=== PATIENT | male | born 1935 | race Caucasian/White ===

== ENCOUNTER 2016-07-14 07:20 | Emergency (ER) | payer MEDICARE ==
[~2016-07-14] VITALS: Ht 172.7 cm; Wt 80.0 kg
[~2016-07-14 07:20] MED LIST: ASPI81CH CHEW; FERR325T PO; GABA300C5 PO; VENTAER INH; parkinson med PO
[2016-07-14] MEDS ORDERED: CARB1CAP PO (07:37)
[2016-07-14] MEDS ORDERED: ANTICRE6 (07:39)
[2016-07-14 07:44] VITALS: RESP 16; O2SAT 95
[2016-07-14] MEDS ORDERED: RESP: ALBUTEROL 2.5 MG/IPRATROPIUM 0.5 MG NEB (SCH) NEB ONE (07:45)
--- NOTE | 2016-07-14 07:49 | PD ---
HPI Chief Complaint: Respiratory Symptoms Time Seen by Provider: 07:27 Travel History International Travel<30 days: No Contact w/Intl Traveler<30days: No Traveled to known affect area: No History of Present Illness HPI 81-year-old male presents with shortness of breath over the past couple of days. He states he went to an urgent care when he could not get in with his primary care physician for left elbow pain. There they placed him on antibiotic that he thinks is Bactrim and told him to use warm compresses and to come back in 2 days to be rechecked. Last night when he was rechecked and told he had shortness of breath they advised him to come to the emergency room. He states he had stuffy had to do so he elected to come in this morning. He states that he is not having specific other concurrent complaints but is an overall poor historian. His helps supplement history. PFSH Past Medical History Hx Anticoagulant Therapy: Yes (BABY ASA DAILY) Arthritis: Yes (pseudogout) Atrial Fibrillation: Yes Autoimmune Disease: No Blood Disorders: No Heart Rhythm Problems: Yes (A. FIB) Cancer: Yes (prostate) Cardiovascular Problems: Yes (atrial fibrillation) Chemotherapy: No Diminished Hearing: No Endocrine: No Gastrointestinal Disorders: No Genitourinary: Yes Immune Disorder: No Kidney Stones: Yes Musculoskeletal: No Neurologic: Yes (RIGHT FACIAL NUMBNESS, SINCE RESOLVED) Psychiatric: No Respiratory: No Immunizations Current: Yes Radiation Therapy: No Past Surgical History Abdominal Surgery: Yes (HERNIA REPAIR) Appendectomy: Yes Body Medical Devices: KIDNEY STENTS Eye Surgery: Yes (BILATERAL CATARACTS WITH IMPLANTS) Genitourinary Surgery: Yes (PROSTATECTOMY, STENTS FOR KIDNEY STONES, LITHOTRIPSY) Tonsillectomy: Yes Other Surgery: Yes Social History Alcohol Use: No Tobacco Use: No Substance Use: No Allergies-Medications (Allergen,Severity, Reaction): Coded Allergies: Codeine (Verified Allergy, Intermediate, Nausea/Vomiting, 07/14/16) Reported Meds & Prescriptions Reported Meds & Active Scripts Active Reported [Antibiotic] Rytary ER 8 HR (Carbidopa-Levodopa ER 8 HR) 36.25-145 Mg Cap 1 Cap PO BID Aspirin 81 Mg Chew 81 Mg CHEW ONCE Gabapentin 300 Mg Cap 300 Mg PO QID PRN Ferrous Sulfate 325 Mg Tab 325 Mg PO DAILY Review of Systems Except as stated in HPI: all other systems reviewed are Neg Physical Exam Narrative GENERAL: Well-nourished, well-developed patient. SKIN: Warm and dry. HEAD: Normocephalic and atraumatic. EYES: No injection or drainage. ENT: No nasal drainage noted. NECK: Supple, trachea midline. CARDIOVASCULAR: Regular rate and rhythm RESPIRATORY: clear bilaterally. No accessory muscle use. GASTROINTESTINAL: Abdomen soft, non-tender, nondistended. EXTREMITIES: 1+ pitting bilateral lower extremity edema. Tenderness over left elbow just above joint where there is a small amount of erythema noted without underlying induration or crepitus or joint pain NEUROLOGICAL: Awake. Moves extremities. Normal speech. Data Data Last Documented VS Vital Signs Date Time Temp Pulse Resp B/P Pulse Ox O2 Delivery O2 Flow Rate FiO2 07/14/16 12:13 62 16 124/61 96 07/14/16 09:41 Room Air Orders Electrocardiogram (07/14/16 07:41) Complete Blood Count With Diff (07/14/16 07:41) Comprehensive Metabolic Panel (07/14/16 07:41) Prothrombin Time / Inr (Pt) (07/14/16 07:41) Act Partial Throm Time (Ptt) (07/14/16 07:41) Magnesium (Mg) (07/14/16 07:41) Phosphorus (Po4) (07/14/16 07:41) Ckmb (Isoenzyme) Profile (07/14/16 07:41) Troponin I (07/14/16 07:41) Urinalysis - C+S If Indicated (07/14/16 07:41) Chest, Single Ap (07/14/16 07:41) Ecg Monitoring (07/14/16 07:41) Iv Access Insert/Monitor (07/14/16 07:41) Oximetry (07/14/16 07:41) Elbow, Complete (4 Vws) (07/14/16 ) B-Type Natriuretic Peptide (07/14/16 07:41) Albuterol-Ipratropium Neb (Duoneb Neb) (07/14/16 07:45) Blood Culture (07/14/16 07:43) Us Arm Venous Doppler (07/14/16 ) CKMB (07/14/16 07:40) CKMB% (07/14/16 07:40) Ct Pulmonary Angiogram (07/14/16 ) Iohexol 350 Inj (Omnipaque 350 Inj) (07/14/16 10:41) Ckmb (Isoenzyme) Profile (07/14/16 11:14) Troponin I (07/14/16 11:14) Electrocardiogram (07/14/16 ) Labs Laboratory Tests Test 07/14/16 07/14/16 07/14/16 07:40 11:00 11:18 White Blood Count 9.8 TH/MM3 Red Blood Count 4.17 MIL/MM3 Hemoglobin 12.5 GM/DL Hematocrit 37.2 % Mean Corpuscular Volume 89.2 FL Mean Corpuscular Hemoglobin 29.9 PG Mean Corpuscular Hemoglobin 33.5 % Concent Red Cell Distribution Width 14.8 % Platelet Count 254 TH/MM3 Mean Platelet Volume 7.1 FL Neutrophils (%) (Auto) 68.8 % Lymphocytes (%) (Auto) 13.0 % Monocytes (%) (Auto) 11.0 % Eosinophils (%) (Auto) 6.4 % Basophils (%) (Auto) 0.8 % Neutrophils # (Auto) 6.7 TH/MM3 Lymphocytes # (Auto) 1.3 TH/MM3 Monocytes # (Auto) 1.1 TH/MM3 Eosinophils # (Auto) 0.6 TH/MM3 Basophils # (Auto) 0.1 TH/MM3 CBC Comment DIFF FINAL Differential Comment Prothrombin Time 10.6 SEC Prothromb Time International 1.0 RATIO Ratio Activated Partial 25.6 SEC Thromboplast Time Sodium Level 144 MEQ/L Potassium Level 4.4 MEQ/L Chloride Level 111 MEQ/L Carbon Dioxide Level 23.7 MEQ/L Anion Gap 9 MEQ/L Blood Urea Nitrogen 19 MG/DL Creatinine 1.30 MG/DL Estimat Glomerular Filtration 53 ML/MIN Rate Random Glucose 94 MG/DL Calcium Level 9.2 MG/DL Phosphorus Level 2.8 MG/DL Magnesium Level 2.0 MG/DL Total Bilirubin 0.2 MG/DL Aspartate Amino Transf 12 U/L (AST/SGOT) Alanine Aminotransferase 10 U/L (ALT/SGPT) Alkaline Phosphatase 47 U/L Total Creatine Kinase 115 U/L 99 U/L Creatine Kinase MB 1.9 NG/ML Troponin I LESS THAN 0.02 LESS THAN 0.02 NG/ML NG/ML B-Type Natriuretic Peptide 58 PG/ML Total Protein 6.9 GM/DL Albumin 3.6 GM/DL Urine Collection Type CLEAN CATCH Urine Color YELLOW Urine Turbidity CLEAR Urine pH 6.5 Urine Specific [place] 1.021 Urine Protein NEG mg/dL Urine Glucose (UA) NEG mg/dL Urine Ketones NEG mg/dL Urine Occult Blood NEG Urine Nitrite NEG Urine Bilirubin NEG Urine Leukocyte Esterase NEG Urine RBC 0-3 /hpf Urine WBC 0-2 /hpf Urine Squamous Epithelial 0-5 /hpf Cells Urine Hyaline Casts 0-2 /lpf Microscopic Urinalysis Comment CULT NOT INDICATED Urine Collection Time 11:00 [facility] Medical Decision Making Medical Screen Exam Complete: Yes Emergency Medical Condition: Yes Medical Record Reviewed: Yes (past history confirmed) Interpretation(s) EKG is sinus rhythm without STEMI criteria CBC & BMP Diagram 07/14/16 07:40 Last 24 hours Impressions Chest X-Ray 07/14/16 0741 Signed Impressions: Service Date/Time: Thursday, July 14, 2016 08:12 - CONCLUSION: No acute disease. No significant change has occurred. Stephon Soto MD Elbow X-Ray 07/14/16 0000 Signed Impressions: Service Date/Time: Thursday, July 14, 2016 08:14 - CONCLUSION: Primary degenerative changes at the elbow joint. Stephon Soto MD Differential Diagnosis Gout, pseudogout, DVT, pneumonia, URI, bronchitis, anemia, renal failure Narrative Course Will check blood work, chest x-ray, Doppler ultrasound and reevaluate ed workup no acute, will add on ct to rule out pe ER workup no acute. We'll discuss with primary care physician Will add on delta troponin and if this is negative patient agrees to discharge. Patient has no chest pain and denies shortness of breath currently. troponin is negative, Patient denies any new complaints, all questions answered. Patient knows that follow up is incumbent on them and to return to the emergency room immediately if new or worsening symptoms develop. Patient given strict return precautions, vitals reviewed and are normal, agrees to further workup as an outpatient. Physician Communication Physician Communication dr galindo states to have patient follow in office on sunday Diagnosis Primary Impression: Shortness of breath Additional Impression: Cellulitis of left elbow Referrals: Frederic Galindo Jr., MD call for appointment sunday Patient Instructions: General Instructions Additional Instructions: continue antibiotic, return as needed, tylenol as needed Med/Other Pt SpecificInfo: No Change to Meds Disposition: 01 DISCHARGE HOME Condition: Stable Caridad Royal MD Jul 14, 2016 07:49
[2016-07-14 07:53] LABS: AUTOMATED NEUTROPHIL # 6.7 TH/MM3 (1.8-7.7); BASOPHIL # 0.1 TH/MM3 (0-0.2); BASOPHIL % 0.8 % (0.0-2.0); EOSINOPHIL # 0.6 TH/MM3 (0-0.4); EOSINOPHIL % 6.4 % (0.0-4.0); HEMATOCRIT 37.2 % (39.0-51.0); HEMO FLAGS DIFF FINAL; LYMPHOCYTE # 1.3 TH/MM3 (1.0-4.8); MEAN CELL VOLUME 89.2 FL (80.0-100.0); MEAN CORPUSCULAR HEMOGLOBIN 29.9 PG (27.0-34.0); MEAN CORPUSCULAR HGB CONC 33.5 % (32.0-36.0); NEUT % 68.8 % (16.0-70.0); PLATELET COUNT 254 TH/MM3 (150-450); RED BLOOD COUNT 4.17 MIL/MM3 (4.50-5.90); RED CELL DISTRIBUTION WIDTH 14.8 % (11.6-17.2); WHITE BLOOD COUNT 9.8 TH/MM3 (4.0-11.0)
[2016-07-14 08:03] LABS: CHLORIDE 111 MEQ/L (98-107); POTASSIUM 4.4 MEQ/L (3.5-5.1); SODIUM (NA) 144 MEQ/L (136-145)
[2016-07-14 08:06] LABS: APTT (PATIENT) 25.6 SEC (24.3-30.1); PROTHROMBIN TIME - PATIENT 10.6 SEC (9.8-11.6)
[2016-07-14 08:07] LABS: ANION GAP 9 MEQ/L (5-15); BICARBONATE 23.7 MEQ/L (21.0-32.0); BLOOD UREA NITROGEN 19 MG/DL (7-18)
[2016-07-14 08:09] LABS: ALT (GPT) 10 U/L (12-78)
[2016-07-14 08:10] LABS: AST (GOT) 12 U/L (15-37); GLOMERULAR FILTRATION RATE 53 ML/MIN (>89)
[2016-07-14 08:11] LABS: TOTAL BILIRUBIN ADULT 0.2 MG/DL (0.2-1.0)
[2016-07-14 08:12] LABS: ALKALINE PHOSPHATASE 47 U/L (45-117); CREATINE KINASE 115 U/L (39-308)
[2016-07-14 08:25] LABS: CKMB 1.9 NG/ML (0.5-3.6)
--- NOTE | 2016-07-14 08:58 | RADHPO ---
EXAM DATE/TIME: 07/14/2016 08:14 [facility] COMPARISON: No previous studies available for comparison. INDICATIONS : Left posterior elbow pain, swelling with no known injury. MEDICAL HISTORY : Arthritis. Renal calculi. Carcinoma, prostatic. A-fib. SURGICAL HISTORY : Tonsillectomy. Prostatectomy. Abdominal aortic aneurysm repair. Cataract. Hernia repair. Renal stents . Lithotripsy. Back surgery. ENCOUNTER: Initial ACUITY: 4 - 6 days PAIN SCORE: 8/10 LOCATION: Left posterior elbow FINDINGS: Multiple view examination of the left elbow demonstrates no soft tissue swelling, joint effusion, or fracture. The osseous structures are in normal alignment. There is no joint effusion. There are mild to moderate primary degenerative changes at the elbow joint. Bony mineralization is normal. There ar e vascular calcifications characteristic of PVD. 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 Stephon Soto MD on July 14, 2016 at 8:56 Board Certified Radiologist. This report was verified electronically.
--- NOTE | 2016-07-14 09:05 | RADHPO ---
EXAM DATE/TIME: 07/14/2016 08:12 [facility] COMPARISON: CHEST SINGLE AP, February 17, 2009, 17:03. INDICATIONS : Short of breath. Wheezing. MEDICAL HISTORY : Arthritis. Renal calculi. Carcinoma, prostatic. A-fib. SURGICAL HISTORY : Prostatectomy. Tonsillectomy. Appendectomy. Cataract. Hernia repair. Renal stents. Lithotripsy. Back surgery. ENCOUNTER: Initial ACUITY: 2 days PAIN SCORE: 0/10 LOCATION: chest FINDINGS: A single view of the chest demonstrates the lungs to be symmetrically aerated without evidence of mas s, infiltrate or effusion. The heart size is mildly enlarged but stable.. Osseous structures are in tact and stable.. CONCLUSION: No acute disease. No significant change has occurred. Stephon Soto MD on July 14, 2016 at 9:03 Board Certified Radiologist. This report was verified electronically.
--- NOTE | 2016-07-14 09:30 | RADHPO ---
EXAM DATE/TIME: 07/14/2016 13:50 [facility] COMPARISON: No previous studies available for comparison. INDICATIONS : Pain in left upper extremity. MEDICAL HISTORY : Carcinoma, prostate. Renal calculi. Pseudogout. Arthritis. Right facial numbness. A-fib. SURGICAL HISTORY : Prostatectomy. Tonsillectomy. Appendectomy. Bilateral cataract impants. Renal stents. Hernia repair. Lithotripsy. Back surgery. ENCOUNTER: Initial ACUITY: 2 day PAIN SCORE: 7/10 LOCATION: Left arm. FINDINGS: There is spontaneous flow documented in the brachial, basilic, cephalic, axillary, and subclavian vei ns. The vessels are compressible and augmentation response is documented. No filling defects are se en. The flow is phasic with respiration. Direction of flow in the jugular vein is caudal. CONCLUSION: No DVT. Stephon Soto MD on July 14, 2016 at 9:28 Board Certified Radiologist. This report was verified electronically.
[2016-07-14 09:41] VITALS: BP 123/59; PULSE 65; RESP 16; O2SAT 95
[2016-07-14] MEDS ORDERED: IOHEXOL 350 MG/ML 10 ML VIAL (for RAD DIAG) IV ONE (10:41)
--- NOTE | 2016-07-14 10:53 | RADHPO ---
EXAM DATE/TIME: 07/14/2016 10:28 [facility] COMPARISON: No previous studies available for comparison. INDICATIONS : Short of breath. IV CONTRAST: 80 cc Omnipaque 350 (iohexol) IV RADIATION DOSE: 17.79 CTDIvol (mGy) MEDICAL HISTORY : Renal calculi. Cardiovascular disease SURGICAL HISTORY : Prostatectomy. Appendectomy. ENCOUNTER: Initial ACUITY: 1 day PAIN SCALE: 7/10 LOCATION: Bilateral upper chest TECHNIQUE: Volumetric scanning of the chest was performed using a pulmonary embolism protocol MIP images were re constructed. Using automated exposure control and adjustment of the mA and/or kV according to patien t size, radiation dose was kept as low as reasonably achievable to obtain optimal diagnostic quality images. FINDINGS: PULMONARY ARTERIES: No filling defects are seen in the pulmonary arteries through the segmental level. LUNGS: No acute pulmonary infiltrates. There is a 5 mm pulmonary nodule in the peripheral right upper lung. There is mild atelectasis in the lung bases. No evidence of pneumothorax. PLEURAE: There is no pleural thickening or pleural effusion. MEDIASTINUM: There is good visualization of the great vessels of the middle mediastinum. No evidence of mediastin al or hilar adenopathy/mass. Heart size is enlarged. MUSCULOSKELETAL: Within normal limits for patient age. MISCELLANEOUS: The visualized upper abdominal organs demonstrate no acute abnormality. Small left renal cyst. CONCLUSION: 1. No evidence of pulmonary embolism. 2. 5 mm pulmonary nodule right upper lung. Recommend followup noncontrast CT thorax in 6 months to ch tanvi stability. 3. No acute pulmonary infiltrates. 4. Cardiomegaly. Stephon Soto MD on July 14, 2016 at 10:47 Board Certified Radiologist. This report was verified electronically.
[2016-07-14 11:09] LABS: BLOOD, URINE NEG (NEG); GLUCOSE,URINE NEG (NEG); KETONE, URINE NEG (NEG); NITRITE,URINE NEG (NEG); PH, URINE 6.5 (5.0-8.5)
[2016-07-14 11:20] LABS: COMMENT (UR) CULT NOT INDICATED; CULTURE IF INDICATED CULT NOT INDICATED; HYALINE CAST, URINE 0-2 /lpf (RARE); METHOD OF COLLECTION CLEAN CATCH; RBC, URINE 0-3 /hpf (0-3); SQUAMOUS EPITHELIAL CELL URINE 0-5 /hpf (0-5); URINE COLOR YELLOW (YELLW/STRAW); WBC, URINE 0-2 /hpf (0-5)
[2016-07-14 11:55] LABS: CREATINE KINASE 99 U/L (39-308)
[2016-07-14 12:13] VITALS: BP 124/61
--- NOTE | 2016-07-14 17:06 | EKG ---
Date Performed: 07/14/2016 Time Performed: 07:58:10 PTAGE: 81 years EKG: Sinus rhythm with borderline 1st degree A-V block Borderline ECG PREVIOUS TRACING : 02/17/2009 16.43 Compared to previous tracing, the patient is back in sinus rhythm. DOCTOR: Sandra Abbott Interpretating Date/Time 07/14/2016 17:06:09
--- NOTE | 2016-07-14 21:52 | EKG ---
Date Performed: 07/14/2016 Time Performed: 11:20:20 PTAGE: 81 years EKG: Sinus rhythm with occasional PAC Poor R wave progression Nonspecific intraventricular conduction delay Leftward a xis Lateral T wave changes are nonspecific Abnormal ECG PREVIOUS TRACING : 07/14/2016 07.58 No significant change from previous tracing noted. DOCTOR: Eldon Boucher Interpretating Date/Time 07/14/2016 21:50:51
[2016-10-30] MEDS ORDERED: GABA300C5 PO (16:04)
== END 2016-07-14 12:19 | disposition home or self-care (01) ==
LOC: PHED 07:20
DX: R06.02 Shortness of breath (principal); L03.114 Cellulitis of left upper limb; I48.91 Unspecified atrial fibrillation; R94.31 Abnormal electrocardiogram [ECG] [EKG]; Z85.46 Personal history of malignant neoplasm of prostate
CPT/HCPCS: 71010; 71275; 73080; 80053; 81001; 82550; 82552; 83735; 83880; 84100; 84484; 85025; 85610; 85730; 87040; 93005; 93971; 94664; 99285; Q9967

== ENCOUNTER → 2016-11-15 | Outpatient (CLI) | payer MEDICARE ==
[~2016-11-15] MED LIST changes: +CARB1CAP PO; -VENTAER INH; -parkinson med PO
--- NOTE | 2016-11-15 12:40 | RADRPT ---
EXAM DATE/TIME: 11/15/2016 00:00 [facility] COMPARISON: No previous studies available for comparison. INDICATIONS : Peripheral vascular disease, low back pain TECHNIQUE: Five-station segmental examination of the lower extremities was performed pre and post exercise. Pulsed-cuff waveform tracings and pressures were recorded. Ankle-brachial indices and toe-brachial indices were calculated. PRESSURES (mmHg): Pre Exercise: Brachial (arm): Right 109 Left 109 Lower Thigh: Right 140 Left 136 Calf: Right 199 Left 150 Ankle: Right CNO >240 Left CNO >240 ISA: Right CNO Left CNO TBI: Right 116 Left 122 Post Exercise: Brachial (arm): Left 145 Not applicable Ankle: Right CNO >240 Left CNO >240 PULSED CUFF WAVEFORMS: Demonstrate normal amplitude bilaterally. CONCLUSION: Strictly equivocal exam with noncompressibility at the ankle stations bilaterally. Satisfactory prese rvation of waveforms and toe pressures would suggest relatively low likelihood of significant lower e xtremity steno-occlusive disease . Nabil Josue MD on November 15, 2016 at 12:34 Board Certified Radiologist. This report was verified electronically.
== END ==
LOC: HCAV 10:32
DX: I73.9 Peripheral vascular disease, unspecified (principal)
CPT/HCPCS: 93924

== ENCOUNTER → 2016-12-14 | Day surgery (SDC) | payer MEDICARE ==
[~2016-12-14] VITALS: Ht 174 cm; Wt 75.0 kg
[~2016-12-14] MED LIST changes: +ATOR10TA15 PO; +BUPIVACAINE HCL PF 0.5% 30 ML VIAL ONE; +CEPH-459 PO; +CHLORHEXIDINE GLUCONATE 2 % 1 PACK (2 CLOTHS) TOPICAL PRN; +FAMOTIDINE 20 MG/2 ML VIAL ONE; -FERR325T PO; +GABA600T PO; +INSULIN HUMAN REGULAR 1,000 UNITS/10 ML VIAL SQ PRN; +ISOS30TA3 PO; +LACTATED RINGER'S 1000 ML INJ 1,000 ML ONE; +LACTATED RINGER'S 1000 ML IV PRN; +LIDOCAINE HCL 2% 50 ML VIAL ONE; +METH8TAB3 PO; +METOPROLOL TARTRATE 25 MG TAB PO PRN; +MIDAZOLAM HCL 2 MG/2 ML VIAL ONE; +MUPIROCIN 2% OINT 22 GM TUBE ONE; +NEOMYCIN/POLYMYXIN 1 ML G.U. IRRIGANT ONE; +NORC5TAB PO; +POVIDONE IODINE 5% (ANTISEPSIS KIT) 4 APPLICATIONS EACH NARE PRN; +PROPOFOL 200 MG/20 ML AMP IV ONE; +SODIUM CHLORID 0.9% 500 ML IV PRN; +SODIUM CHLORIDE 0.9% INJ 50 ML ONE; +ceFAZolin 1,000 MG/NS 100 ML IV SCH; +ceFAZolin INJ 1,000 MG VIAL ONE
[2016-12-14 07:15] LABS: MEAN CELL VOLUME 89.6 FL (80.0-100.0); MEAN CORPUSCULAR HEMOGLOBIN 28.9 PG (27.0-34.0); MEAN CORPUSCULAR HGB CONC 32.3 % (32.0-36.0); PLATELET COUNT 208 TH/MM3 (150-450); RED BLOOD COUNT 4.24 MIL/MM3 (4.50-5.90); RED CELL DISTRIBUTION WIDTH 15.6 % (11.6-17.2); REVIEW FLAG FINAL; WHITE BLOOD COUNT 8.4 TH/MM3 (4.0-11.0)
[2016-12-14 07:21] VITALS: BP 142/74; PULSE 60; RESP 16; TEMP 98.1; O2SAT 97
[2016-12-14 10:40] VITALS: BP 132/62; PULSE 53; RESP 16; TEMP 98; O2SAT 100
--- NOTE | 2016-12-15 15:21 | MP ---
cc: RICH PEREZ III, M.D. DATE OF SURGERY: 12/14/2016 PREOPERATIVE DIAGNOSIS: Left thumb nail bed mass. POSTOPERATIVE DIAGNOSIS: Left thumb nail bed mass. OPERATION: 1. Left thumb nail plate partial excision. 2. Left thumb nail plate biopsied. 3. Left thumb nail bed mass excisional biopsy. SURGEON: Rich Perez III, MD. DESCRIPTION OF THE PROCEDURE IN DETAIL: The patient was seen in the preoperative holding area and his left olecranon bursitis had significantly and just about completely resolved. There was no erythema, fluctuance or discomfort. The patient was requesting we observe at this time and not do a bursectomy, which I agreed with. This was discussed with the operating room staff as well. DESCRIPTION OF THE PROCEDURE IN DETAIL: The patient was brought to the operating room and placed supine on the operating table. After the correct site and side of surgery were verified by members of each team in the room multiple times including the patient and myself and after adequate preoperative markings and preoperative written consent were verified by everyone and after adequate preoperative time-out was performed to everyone's satisfaction and after adequate IV sedation had been achieved, the left upper extremity was prepped and draped in the traditional sterile surgical fashion. A metacarpal level block of the left thumb was made using a 50/50 mixture of 2% plain lidocaine and 0.5% plain Marcaine. Two small fingers from a size 6 sterile glove were made and a finger tourniquet was made. The radial half of the thumb nail plate was then excised and passed off the field as a specimen along with the tissue that was adherent to it and causing disfigurement. The distal one-third of the nail bed had a large fungating mass which was then sharply excised and passed off the field as a specimen. The nail bed was then examined and found be intact and a gentle amount of re-contouring with the curette was performed. Thorough irrigation was performed. The finger cot was released and the nail bed became immediately soft, pink and warm and had brisk capillary refill of less than 2 seconds. Bactroban ointment was applied followed by a Xeroform dressing and then a gentle circumferential dressing was placed. The patient was awakened from anesthesia and transported to the post-anesthesia care unit awake and in stable condition at the end of the case. Sponge, needle injury counts were correct at the end of the case as reported by nurses in the room. There was no evidence of any bleeding or hematoma formation. MD LOUIS Lang III/ARSEN /8:55 AM /3:07 PM
== END | disposition home or self-care (01) ==
LOC: PHSDC 06:20
PROVIDERS: ATTEND Orthopaedic Surgery Hand Surgery
DX: R22.32 Localized swelling, mass and lump, left upper limb (principal); I48.91 Unspecified atrial fibrillation; G20 Parkinson's disease; M70.32 Other bursitis of elbow, left elbow
CPT/HCPCS: 00400; 11730; 11755; 36415; 85027; 88304; 88305; 88312; J0690; J2250; J7120; 88311

== ENCOUNTER 2017-06-14 14:50 | Inpatient (IN) | payer MEDICARE ==
[2017-06-14] VITALS (7 sets, daily range): BP systolic 133–191; BP diastolic 64–91; PULSE 56–88; RESP 16–18; TEMP 97.5–98.7; O2SAT 97–99
[~2017-06-14] VITALS: Ht 172.7 cm; Wt 75.0 kg
[~2017-06-14 14:50] MED LIST changes: +ASPI-516 CHEW; -ASPI81CH CHEW; -BUPIVACAINE HCL PF 0.5% 30 ML VIAL ONE; -CEPH-459 PO; -CHLORHEXIDINE GLUCONATE 2 % 1 PACK (2 CLOTHS) TOPICAL PRN; -FAMOTIDINE 20 MG/2 ML VIAL ONE; -GABA300C5 PO; -INSULIN HUMAN REGULAR 1,000 UNITS/10 ML VIAL SQ PRN; -LACTATED RINGER'S 1000 ML INJ 1,000 ML ONE; -LACTATED RINGER'S 1000 ML IV PRN; -LIDOCAINE HCL 2% 50 ML VIAL ONE; -METOPROLOL TARTRATE 25 MG TAB PO PRN; -MIDAZOLAM HCL 2 MG/2 ML VIAL ONE; -MUPIROCIN 2% OINT 22 GM TUBE ONE; -NEOMYCIN/POLYMYXIN 1 ML G.U. IRRIGANT ONE; -NORC5TAB PO; -POVIDONE IODINE 5% (ANTISEPSIS KIT) 4 APPLICATIONS EACH NARE PRN; -PROPOFOL 200 MG/20 ML AMP IV ONE; -SODIUM CHLORID 0.9% 500 ML IV PRN; -SODIUM CHLORIDE 0.9% INJ 50 ML ONE; -ceFAZolin 1,000 MG/NS 100 ML IV SCH; -ceFAZolin INJ 1,000 MG VIAL ONE
[2017-06-14 15:31] LABS: AUTOMATED NEUTROPHIL # 3.6 TH/MM3 (1.8-7.7); BASOPHIL % 0.8 % (0.0-2.0); EOSINOPHIL # 0.2 TH/MM3 (0-0.4); EOSINOPHIL % 3.5 % (0.0-4.0); HEMOGLOBIN 15.3 GM/DL (13.0-17.0); LYMPH % 17.3 % (9.0-44.0); MEAN CELL VOLUME 88.9 FL (80.0-100.0); MEAN CORPUSCULAR HEMOGLOBIN 30.2 PG (27.0-34.0); MEAN CORPUSCULAR HGB CONC 33.9 % (32.0-36.0); MEAN PLATELET VOLUME 6.9 FL (7.0-11.0); MONO % 15.9 % (0.0-8.0); MONOCYTE # 0.9 TH/MM3 (0-0.9); NEUT % 62.5 % (16.0-70.0); PLATELET COUNT 206 TH/MM3 (150-450); RED BLOOD COUNT 5.06 MIL/MM3 (4.50-5.90); RED CELL DISTRIBUTION WIDTH 15.9 % (11.6-17.2); WHITE BLOOD COUNT 5.8 TH/MM3 (4.0-11.0)
[2017-06-14 15:46] LABS: ALBUMIN 3.7 GM/DL (3.4-5.0); ALT (GPT) 17 U/L (12-78); AST (GOT) 23 U/L (15-37); BICARBONATE 25.9 MEQ/L (21.0-32.0); BLOOD UREA NITROGEN 19 MG/DL (7-18); CALCIUM 9.5 MG/DL (8.5-10.1); CHLORIDE 105 MEQ/L (98-107); CREATININE 1.04 MG/DL (0.60-1.30); GLOMERULAR FILTRATION RATE 68 ML/MIN (>89); GLUCOSE,RANDOM 124 MG/DL (74-106); SODIUM (NA) 139 MEQ/L (136-145)
[2017-06-14 15:50] LABS: ALKALINE PHOSPHATASE 56 U/L (45-117); TOTAL BILIRUBIN ADULT 0.3 MG/DL (0.2-1.0); TOTAL PROTEIN 7.8 GM/DL (6.4-8.2); TROPONIN I LESS THAN 0.02 NG/ML (0.02-0.05)
--- NOTE | 2017-06-14 15:51 | RADRPT ---
EXAM DATE/TIME: 06/14/2017 15:31 [facility] COMPARISON: CHEST SINGLE AP, July 14, 2016, 8:12. INDICATIONS : Flu like symptoms and cough. MEDICAL HISTORY : Prostate cancer, AFIB, Renal calculi. SURGICAL HISTORY : Appendectomy. Tonsillectomy. Prostatectomy. Hernia repair, Stents for kidney stones, Lithotripsy. ENCOUNTER: Initial ACUITY: 3 days PAIN SCORE: 0/10 LOCATION: Bilateral chest FINDINGS: PA and lateral views of the chest. Mild cardiac silhouette enlargement unchanged. Mild bilateral lowe r lung atelectasis unchanged. No evidence of pleural effusion or pneumothorax. CONCLUSION: No significant interval change. Mild cardiac silhouette enlargement and bilateral lower lung atelecta sis again seen. Wai Hernandez MD on June 14, 2017 at 15:47 Board Certified Radiologist. This report was verified electronically.
[2017-06-14] MEDS ORDERED: DOXY100C PO (15:56)
[2017-06-14] MEDS ORDERED: OSEL75 PO (15:56)
[2017-06-14] MEDS ORDERED: KETOROLAC TROMETHAMINE 30 MG/ML (IVP) VIAL IV PUSH ONE (16:00)
[2017-06-14] MEDS ORDERED: ACETAMINOPHEN 325 MG TAB PO ONE (16:00)
[2017-06-14] MEDS ORDERED: SODIUM CHLOR 0.9% 1000 ML INJ 1,000 ML IV ONE (16:00)
--- NOTE | 2017-06-14 16:52 | PD ---
HPI Chief Complaint: Cold / Flu Symptoms Time Seen by Provider: 15:43 Travel History International Travel<30 days: No Contact w/Intl Traveler<30days: No Traveled to known affect area: No History of Present Illness HPI 82-year-old male that presents to the ED for evaluation of cold-like symptoms. Patient has a history of cold-like symptoms since Sunday. Patient was diagnosed and an urgent care on Sunday with the flu and was started on Tamiflu and doxycycline as there was possibility of pneumonia. Patient has unfortunately been noncompliant. Per family member since Sunday his been acting more confused and not been eating or drinking anything. Patient was seen by his doctor today from the resident team Dr. Lu who evaluated him and recommended that he comes to the ED to get evaluated as he does appear to be altered. He's not been taking the antibiotics or drinking any fluids. Per family doctor concerning his dehydrated and his status is deteriorating. He has no history of asthma or COPD. No chest pain or shortness of breath. Allergy to codeine. States having pain in different areas. No urinary or bowel movement issues. No abdominal pain. No chest pain or shortness of breath. States having some cough that is productive. The pain per patient is 7 out of 10 and it appears to be in different areas of the body. She describes a like body aches. He does appear to be very confused most the history is obtained from the family members. PFSH Past Medical History Hx Anticoagulant Therapy: Yes Arthritis: Yes (pseudogout) Atrial Fibrillation: Yes Autoimmune Disease: No Blood Disorders: No Heart Rhythm Problems: Yes (A. FIB) Cancer: Yes (prostate) Cardiovascular Problems: Yes Chemotherapy: No Diminished Hearing: No Endocrine: No Gastrointestinal Disorders: No Genitourinary: Yes (KIDNEY STONES) Hiatal Hernia: No Immune Disorder: No Kidney Stones: Yes Musculoskeletal: Yes (LEFT THUMB NAILBED MASS;LEFT ELBOW BURSITIS) Neurologic: Yes (RIGHT FACIAL NUMBNESS, SINCE RESOLVED;PARKINSONS ) Psychiatric: No Reproductive: No Respiratory: No Immunizations Current: Yes Radiation Therapy: No Past Surgical History Abdominal Surgery: Yes (HERNIA REPAIR;APPY) AICD: No Appendectomy: Yes Body Medical Devices: KIDNEY STENTS Eye Surgery: Yes (BILATERAL CATARACTS WITH IMPLANTS) Genitourinary Surgery: Yes (PROSTATECTOMY, STENTS FOR KIDNEY STONES, LITHOTRIPSY) Joint Replacement: No Oral Surgery: Yes (TONSILLECTOMY) Pacemaker: No Tonsillectomy: Yes Other Surgery: Yes Social History Alcohol Use: No Tobacco Use: No Substance Use: No Allergies-Medications (Allergen,Severity, Reaction): Coded Allergies: codeine (Unverified Allergy, Intermediate, Nausea/Vomiting, 06/14/17) Reported Meds & Prescriptions Reported Meds & Active Scripts Active Reported Tamiflu (Oseltamivir Phosphate) 75 Mg Cap 75 Mg PO DAILY Doxycycline Hyclate 100 Mg Cap 100 Mg PO BID Isosorbide Mononitrate ER (Isosorbide Mononitrate) 30 Mg Melissa 30 Mg PO DAILY Methylprednisolone 8 Mg Tab 4 Mg PO DAILY Atorvastatin (Atorvastatin Calcium) 10 Mg Tab 10 Mg PO HS Gabapentin 600 Mg Tab 600 Mg PO TID Rytary ER 8 HR (Carbidopa-Levodopa ER 8 HR) 36.25-145 Mg Cap 1 Cap PO BID Aspirin 81 Mg Chew 81 Mg CHEW ONCE Review of Systems ROS Limitations: Altered Mental Status Except as stated in HPI: all other systems reviewed are Neg Physical Exam Exam Limitations: Altered Mental Status Narrative GENERAL: SKIN: Warm and dry. HEAD: Atraumatic. Normocephalic. EYES: Pupils equal and round. No scleral icterus. No injection or drainage. ENT: No nasal bleeding or discharge. Mucous membranes pink and moist. Tongue is midline. No uvula deviation. NECK: Trachea midline. No JVD. CARDIOVASCULAR: Regular rate and rhythm. No murmurs, S3, S4. RESPIRATORY: No accessory muscle use. Clear to auscultation. Breath sounds equal bilaterally. GASTROINTESTINAL: Abdomen soft, non-tender, nondistended. Hepatic and splenic margins not palpable. MUSCULOSKELETAL: Extremities without clubbing, cyanosis, or edema. No obvious deformities. Full range of motion of the upper and lower extremities bilaterally. 2+ pulses bilaterally. NEUROLOGICAL: Awake and alert and oriented 2. No obvious cranial nerve deficits. Motor grossly within normal limits. Five out of 5 muscle strength in the arms and legs. Normal speech. PSYCHIATRIC: Altered mood and affect; insight and judgment minimal Data Data Last Documented VS Vital Signs Date Time Temp Pulse Resp B/P (MAP) Pulse Ox O2 Delivery O2 Flow Rate FiO2 06/14/17 16:21 57 18 167/74 (105) 97 Room Air 06/14/17 14:51 98.1 Orders Orders Complete Blood Count With Diff (06/14/17 15:03) Comprehensive Metabolic Panel (06/14/17 15:03) Urinalysis - C+S If Indicated (06/14/17 15:03) Electrocardiogram (06/14/17 15:03) Troponin I (06/14/17 15:03) Chest, Pa & Lat (06/14/17 ) Blood Culture (06/14/17 15:57) Lactic Acid Sepsis Protocol (06/14/17 15:57) Sodium Chlor 0.9% 1000 Ml Inj (Ns 1000 M (06/14/17 16:00) Ketorolac Inj (Toradol Inj) (06/14/17 16:00) Ct Brain W/O Iv Contrast(Rout) (06/14/17 ) Acetaminophen (Tylenol) (06/14/17 16:00) Influenzae A/B Antigen (06/14/17 17:18) Admit Order (Ed Use Only) (06/14/17 17:22) Diet Regular Basic (06/14/17 Dinner) Oseltamivir (Tamiflu) (06/14/17 17:45) Labs Laboratory Tests Test 06/14/17 15:09 06/14/17 16:21 White Blood Count 5.8 TH/MM3 Red Blood Count 5.06 MIL/MM3 Hemoglobin 15.3 GM/DL Hematocrit 45.0 % Mean Corpuscular Volume 88.9 FL Mean Corpuscular Hemoglobin 30.2 PG Mean Corpuscular Hemoglobin Concent 33.9 % Red Cell Distribution Width 15.9 % Platelet Count 206 TH/MM3 Mean Platelet Volume 6.9 FL Neutrophils (%) (Auto) 62.5 % Lymphocytes (%) (Auto) 17.3 % Monocytes (%) (Auto) 15.9 % Eosinophils (%) (Auto) 3.5 % Basophils (%) (Auto) 0.8 % Neutrophils # (Auto) 3.6 TH/MM3 Lymphocytes # (Auto) 1.0 TH/MM3 Monocytes # (Auto) 0.9 TH/MM3 Eosinophils # (Auto) 0.2 TH/MM3 Basophils # (Auto) 0.0 TH/MM3 CBC Comment DIFF FINAL Differential Comment Blood Urea Nitrogen 19 MG/DL Creatinine 1.04 MG/DL Random Glucose 124 MG/DL Total Protein 7.8 GM/DL Albumin 3.7 GM/DL Calcium Level 9.5 MG/DL Alkaline Phosphatase 56 U/L Aspartate Amino Transf (AST/SGOT) 23 U/L Alanine Aminotransferase (ALT/SGPT) 17 U/L Total Bilirubin 0.3 MG/DL Sodium Level 139 MEQ/L Potassium Level 4.2 MEQ/L Chloride Level 105 MEQ/L Carbon Dioxide Level 25.9 MEQ/L Anion Gap 8 MEQ/L Estimat Glomerular Filtration Rate 68 ML/MIN Troponin I LESS THAN 0.02 NG/ML Lactic Acid Level 1.3 mmol/L MDM Medical Decision Making Medical Screen Exam Complete: Yes Emergency Medical Condition: Yes Medical Record Reviewed: Yes Interpretation(s) Last Impressions Chest X-Ray 06/14/17 0000 Signed Impressions: Service Date/Time: May 15:31 - CONCLUSION: No significant interval change. Mild cardiac silhouette enlargement and bilateral lower lung atelectasis again seen. Wai Hernandez MD CBC & BMP Diagram 06/14/17 15:09 Total Protein 7.8, Albumin 3.7, Calcium Level 9.5, Alkaline Phosphatase 56, Aspartate Amino Transf (AST/SGOT) 23, Alanine Aminotransferase (ALT/SGPT) 17, Total Bilirubin 0.3 Differential Diagnosis Altered mental status versus influenza versus pneumonia versus dehydration versus inability take care of self versus viral illness Narrative Course 82-year-old male that presents to the ED for evaluation of cold-like symptoms and altered mental status. Patient was properly examined and was found to have signs and symptoms consistent with appears to be likely viral illness. Patient does appear to be altered likely from the hydration and viral illness. No sign of meningitis at this time. I do recommend labs and fluids as well as likely admission secondary to altered mental status. Family and patient agree with this. Labs and imaging is were negative. Patient still confused. Patient was admitted to the hospital to the resident's agreed to admission. Diagnosis Primary Impression: Altered mental status Qualified Codes: R41.82 - Altered mental status, unspecified Additional Impression: Influenza Admitting Information Admitting Physician Requests: Hernán Oneill Jun 14, 2017 16:52
--- NOTE | 2017-06-14 17:14 | RADRPT ---
EXAM DATE/TIME: 06/14/2017 16:42 [facility] COMPARISON: No previous studies available for comparison. INDICATIONS : Increasing pain,feeling weak. RADIATION DOSE: 45.61 CTDIvol (mGy) MEDICAL HISTORY : Parkinson's. Cardiovascular disease Carcinoma, prostate.Renal stones SURGICAL HISTORY : Appendectomy. Hernia repair ENCOUNTER: Initial ACUITY: 1 day PAIN SCALE: 7/10 LOCATION: cranial TECHNIQUE: Multiple contiguous axial images were obtained of the head. Using automated exposure control and adj ustment of the mA and/or kV according to patient size, radiation dose was kept as low as reasonably a chievable to obtain optimal diagnostic quality images. DICOM format image data is available electro nically for review and comparison. FINDINGS: CEREBRUM: The ventricles are normal for age. No evidence of midline shift, mass lesion, hemorrhage or acute in farction. No extra-axial fluid collections are seen. POSTERIOR FOSSA: The cerebellum and brainstem are intact. The 4th ventricle is midline. The cerebellopontine angle i s unremarkable. EXTRACRANIAL: Mild bilateral ethmoid sinus partial opacification. SKULL: The calvaria is intact. No evidence of skull fracture. CONCLUSION: No acute intracranial findings. Wai Hernandez MD on June 14, 2017 at 17:06 Board Certified Radiologist. This report was verified electronically.
[2017-06-14] MEDS ORDERED: OSELTAMIVIR PHOSPHATE 30 MG CAP PO SCH (17:45)
[2017-06-14] MEDS ORDERED: SODIUM CHLORIDE 0.9% FLUSH 10 ML FLUSH IV FLUSH PRN ×2 (17:45→19:45)
[2017-06-14] MEDS ORDERED: ONDANSETRON HCL 4 MG/2 ML VIAL IVP PRN ×2 (17:45→19:45)
[2017-06-14] MEDS ORDERED: NALOXONE HCL 0.4 MG/ML AMP IV PUSH PRN ×2 (17:45→19:45)
[2017-06-14] MEDS ORDERED: ASPIRIN 81 MG CHEW TAB CHEW SCH (17:45)
[2017-06-14] MEDS ORDERED: ACETAMINOPHEN 325 MG TAB PO PRN (17:45)
--- NOTE | 2017-06-14 17:56 | HHI.HP ---
HPI Service Family Medicine Primary Care Physician Brandon Soriano MD Admission Diagnosis altered mental status, influenza infection, dehydration Diagnoses: International Travel<30 Days: No Contact w/Intl Traveler<30days: No Known Affected Area: No History of Present Illness Mr Nixon is an 82 YO male w/PMHx Afib and recurrent nephrolithiasis who presents with flu-like sxs since Sunday. His Sarah reports her came down with flu like symptoms starting with a cough on Sunday. By Sunday he had a runny nose, cough productive of sputum, fever, headache, and ear pain and went to urgent care and was dx with influenza A via nasal swab. He was prescribed Tamiflu and Doxycycline 100mg, but decided by Sunday that he would no longer take his flu medications. His reports that he had been refusing his normal medications since Sunday. He has had AMS since Sunday as reports he has not been himself and he seems confused. Pt has trouble walking and Dr Wolf, neurologist, thinks he has Parkinson's, but is not reported to be on medication for this yet; however, he has Carbidopa-levodopa on his med recs. Denies CP, current SOB, V/D, DVT pain, but has told his he was nauseous. (Roberto Ward MD R1) Review of Systems Constitutional: COMPLAINS OF: Fever, Weight loss (a little), Chills, Night Sweats, DENIES: Weight gain, Dizziness Eyes: DENIES: Blurred vision, Vision loss Ears, nose, mouth, throat: COMPLAINS OF: Nasal discharge, Throat pain, Hoarseness, Ear Pain, Running Nose, DENIES: Oral lesions Respiratory: COMPLAINS OF: Cough, Wheezing, Sputum production, Shortness of breath, DENIES: Hemoptysis Cardiovascular: DENIES: Chest pain, Palpitations, Syncope Gastrointestinal: COMPLAINS OF: Constipation (occasional), Nausea, DENIES: Abdominal pain, Black stools, Bloody stools, Diarrhea, Vomiting Genitourinary: DENIES: Urinary incontinence, Urgency, Hematuria Musculoskeletal: COMPLAINS OF: Joint pain, Muscle aches Integumentary: COMPLAINS OF: Pruritus, DENIES: Rash Neurologic: COMPLAINS OF: Headache, Tremor, DENIES: Seizures (Roberto Ward MD R1) Past Family Social History Past Medical History Afib (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) recurrent nephrolithiasis cataract surgery Past Surgical History prostate cancer appendectomy balloon angioplasty Reported Medications Reported Meds & Active Scripts Active Reported Tamiflu (Oseltamivir Phosphate) 75 Mg Cap 75 Mg PO DAILY Doxycycline Hyclate 100 Mg Cap 100 Mg PO BID Isosorbide Mononitrate ER (Isosorbide Mononitrate) 30 Mg Melissa 30 Mg PO DAILY Methylprednisolone 8 Mg Tab 4 Mg PO DAILY Atorvastatin (Atorvastatin Calcium) 10 Mg Tab 10 Mg PO HS Gabapentin 600 Mg Tab 600 Mg PO TID Rytary ER 8 HR (Carbidopa-Levodopa ER 8 HR) 36.25-145 Mg Cap 1 Cap PO BID Aspirin 81 Mg Chew 81 Mg CHEW ONCE (Roberto Ward MD R1) Allergies: Coded Allergies: codeine (Unverified Allergy, Intermediate, Nausea/Vomiting, 06/14/17) Active Ordered Medications Current Medications Medications (Trade) Dose Ordered Sig/Anthony Route Start Time Stop Time Status Last Admin (Tamiflu) 30 mg BID PO 06/14/17 17:45 06/14/17 20:55 (Aspirin Chew) 81 mg ONCE CHEW 06/14/17 17:45 06/14/17 23:59 (Lipitor) 10 mg HS PO 06/14/17 21:00 (Neurontin) 600 mg TID PO 06/14/17 18:00 06/14/17 18:43 (Imdur) 30 mg DAILY PO 06/15/17 09:00 Future Hold (Tylenol) 650 mg Q4H PRN PO 06/14/17 17:45 (Lovenox Inj) 30 mg Q24H SQ 06/14/17 18:00 06/14/17 18:44 (Ativan Inj) 0.25 mg Q4H PRN IV PUSH 06/14/17 18:30 Sodium Chloride 1,000 ml @ 100 mls/hr Q10H IV 06/14/17 19:00 Patient Own Medication PT OWN MED: RYT... BID PO 06/14/17 21:00 Future Hold (Vasotec Inj) 1.25 mg Q6H PRN IV PUSH 06/14/17 18:45 (NS Flush) 2 ml UNSCH PRN IV FLUSH 06/14/17 19:45 (NS Flush) 2 ml BID IV FLUSH 06/14/17 21:00 (Zofran Inj) 4 mg Q6H PRN IVP 06/14/17 19:45 (Narcan Inj) 0.4 mg UNSCH PRN IV PUSH 06/14/17 19:45 (Kiera-Colace) 1 tab BID PO 06/14/17 21:00 (Milk Of Magnesia Liq) 30 ml Q12H PRN PO 06/14/17 19:45 (Senokot) 17.2 mg Q12H PRN PO 06/14/17 19:45 (Dulcolax Supp) 10 mg DAILY PRN RECTAL 06/14/17 19:45 (Lactulose Liq) 30 ml DAILY PRN PO 06/14/17 19:45 Family History Mother - Alzheimer's Father - Parkinson's Social History EtOH - none Tobacco - never smoker Drugs - none Lives with aSrah no pets (Roberto Ward MD R1) Physical Exam Vital Signs Vital Signs Date Time Temp Pulse Resp B/P (MAP) Pulse Ox O2 Delivery O2 Flow Rate FiO2 06/14/17 16:21 57 18 167/74 (105) 97 Room Air 06/14/17 15:45 61 18 96 Room Air 06/14/17 14:51 98.1 63 18 160/74 (102) 97 Physical Exam GENERAL: This is a well-nourished, well-developed patient, in no apparent distress. SKIN: No rashes, ecchymoses or lesions. Cool and dry. HEAD: Atraumatic. Normocephalic. EYES: Pupils equal round and reactive. Extraocular motions intact. No scleral icterus. No injection or drainage. ENT: Nose without bleeding or drainage, but with minor crusting around nares. Throat without erythema, tonsillar hypertrophy or exudate. Uvula midline. Airway patent. TMs appear normal without effusion, erythema, or perforation. NECK: Trachea midline. No JVD or lymphadenopathy. Supple, nontender, no meningeal signs. CARDIOVASCULAR: Regular rate and rhythm without murmur, gallop, or rub. RESPIRATORY: Clear to auscultation. Breath sounds equal bilaterally. Mild expiratory wheezes heard at lung bases; no rales or rhonchi. GASTROINTESTINAL: Abdomen soft, non-tender, nondistended. No hepato-splenomegaly , or palpable masses. No guarding. MUSCULOSKELETAL: Extremities without clubbing, cyanosis, or edema. No joint tenderness, effusion, or edema noted. No calf tenderness. NEUROLOGICAL: Alert and oriented to name and place; repeatedly wanted to depart and had to be redirected repeatedly. Cranial nerves II through XII intact. Motor and sensory grossly within normal limits. Normal speech. Laboratory Laboratory Tests Test 06/14/17 15:09 06/14/17 16:21 White Blood Count 5.8 Red Blood Count 5.06 Hemoglobin 15.3 Hematocrit 45.0 Mean Corpuscular Volume 88.9 Mean Corpuscular Hemoglobin 30.2 Mean Corpuscular Hemoglobin Concent 33.9 Red Cell Distribution Width 15.9 Platelet Count 206 Mean Platelet Volume 6.9 Neutrophils (%) (Auto) 62.5 Lymphocytes (%) (Auto) 17.3 Monocytes (%) (Auto) 15.9 Eosinophils (%) (Auto) 3.5 Basophils (%) (Auto) 0.8 Neutrophils # (Auto) 3.6 Lymphocytes # (Auto) 1.0 Monocytes # (Auto) 0.9 Eosinophils # (Auto) 0.2 Basophils # (Auto) 0.0 CBC Comment DIFF FINAL Differential Comment Blood Urea Nitrogen 19 Creatinine 1.04 Random Glucose 124 Total Protein 7.8 Albumin 3.7 Calcium Level 9.5 Alkaline Phosphatase 56 Aspartate Amino Transf (AST/SGOT) 23 Alanine Aminotransferase (ALT/SGPT) 17 Total Bilirubin 0.3 Sodium Level 139 Potassium Level 4.2 Chloride Level 105 Carbon Dioxide Level 25.9 Anion Gap 8 Estimat Glomerular Filtration Rate 68 Troponin I LESS THAN 0.02 Lactic Acid Level 1.3 Date/Time Source Procedure Growth Status 06/14/17 16:21 Blood Peripheral Aerobic Blood Culture Pending Received 06/14/17 16:21 Blood Peripheral Anaerobic Blood Culture Pending Received (Roberto Ward MD R1) Result Diagram: 06/14/17 1509 06/14/17 1509 Imaging Last Impressions Head CT 06/14/17 0000 Signed Impressions: Service Date/Time: May 16:42 - CONCLUSION: No acute intracranial findings. Wai Hernandez MD Chest X-Ray 06/14/17 0000 Signed Impressions: Service Date/Time: May 15:31 - CONCLUSION: No significant interval change. Mild cardiac silhouette enlargement and bilateral lower lung atelectasis again seen. Wai Hernandez MD (Roberto Ward MD R1) Septic Shock Reassessment Septic shock perfusion: reassessment completed (Roberto Ward MD R1) Caprini VTE Risk Assessment Caprini VTE Risk Assessment: Mod/High Risk (score >= 2) Caprini Risk Assessment Model Point Value = 1 Point Value = 2 Point Value = 3 Point Value = 5 Age 41-60 Minor surgery BMI > 25 kg/m2 Swollen legs Varicose veins or History of unexplained or recurrent spontaneous Oral contraceptives or hormone replacement Sepsis (< 1 month) Serious lung disease, including pneumonia (< 1 month) Abnormal pulmonary function Acute myocardial infarction Congestive heart failure (< 1 month) History of inflammatory bowel disease Medical patient at bed rest Age 61-74 Arthroscopic surgery Major open surgery (> 45 min) Laparoscopic surgery (> 45 min) Malignancy Confined to bed (> 72 hours) Immobilizing plaster cast Central venous access Age >= 75 History of VTE Family history of VTE Factor V Leiden Prothrombin [id number] Lupus anticoagulant Anticardiolipin antibodies Elevated serum homocysteine Heparin-induced thrombocytopenia Other congenital or acquired thrombophilia Stroke (< 1 month) Elective arthroplasty Hip, pelvis, or leg fracture Acute spinal cord injury (< 1 month) Prophylaxis Regimen Total Risk Factor Score Risk Level Prophylaxis Regimen 0-1 Low Early ambulation 2 Moderate Order ONE of the following: *Sequential Compression Device (SCD) *Heparin 5000 units SQ BID 3-4 Higher Order ONE of the following medications: *Heparin 5000 units SQ TID *Enoxaparin/Lovenox 40 mg SQ daily (WT < 150 kg, CrCl > 30 mL/min) *Enoxaparin/Lovenox 30 mg SQ daily (WT < 150 kg, CrCl > 10-29 mL/min) *Enoxaparin/Lovenox 30 mg SQ BID (WT < 150 kg, CrCl > 30 mL/min) AND/OR *Sequential Compression Device (SCD) 5 or more Highest Order ONE of the following medications: *Heparin 5000 units SQ TID (Preferred with Epidurals) *Enoxaparin/Lovenox 40 mg SQ daily (WT < 150 kg, CrCl > 30 mL/min) *Enoxaparin/Lovenox 30 mg SQ daily (WT < 150 kg, CrCl > 10-29 mL/min) *Enoxaparin/Lovenox 30 mg SQ BID (WT < 150 kg, CrCl > 30 mL/min) AND *Sequential Compression Device (SCD) (Roberto Ward MD R1) Assessment and Plan Assessment and Plan 82YO male w/PMHx of Afib and recurrent nephrolithiasis p/w influenza dx at urgent care on Sunday with sxs since Sunday. Resuming Tamiflu that the pt had become non-compliant on yesterday. Impression: -CXR w/bibasilar atelectasis -Head CT no acute findings -CBC wnl (15.9% monos) -CMP wnl (BUN 19 and random glucose 124) -Trop 0.02, BNP 30 -Ammonia 19 -UA pending -Blood cx pending -Influenza a/b pending PLAN: 1. Influenza A with likely mild dehydration -Contact precautions -Tamiflu 75mg daily -Tylenol 650mg PO pain/temp >100.4 -NS IVF @ 100ml/hr -Hold previous Rx of Doxycycline 100mg BID 2. CV -Continue home isosorbide nitrate 30mg PO daily -Continue home atorvastatin 10mg qhs -Continue home ASA 81mg chew daily 3. Parkinson's -Continue home Carbidopa-levodopa 36.25-145mg 1 cap BID 4. Delirium -Haldol 1mg IV PRN agitation -Ativan 0.25mg IV PRN agitation/anxiety -Sitter 1:1 -Restraints if required 5. FEN/GI/PPx: Fluids: as above Electrolytes: none required at this time Nutrition: regular diet as tolerated GI: none indicated at this time PPx: Lovenox 30mg subcu q24h Bowel regimen Zofran 4mg IV PRN Continue home dose gabapentin 600mg BID Code Status FULL Code HCPOA is Sarah Nixon, his Discussed Condition With Dr Mauricio (Roberto Ward MD R1) Problem List: (1) Influenza ICD Codes: J11.1 - Influenza due to unidentified influenza virus with other respiratory manifestations (2) Altered mental status ICD Codes: R41.82 - Altered mental status, unspecified Status: Acute (3) Parkinson disease ICD Codes: G20 - Parkinson's disease Status: Acute (4) Paroxysmal atrial fibrillation ICD Codes: I48.0 - Paroxysmal atrial fibrillation Status: Chronic (5) FEN/GI/PPx (Roberto Ward MD R1) Problem Qualifiers (1) Altered mental status: Qualified Codes: R41.82 - Altered mental status, unspecified Roberto Ward MD R1 Jun 14, 2017 17:56 Deyanira Wills MD Jun 15, 2017 09:17
[2017-06-14] MEDS ORDERED: HALOPERIDOL LACTATE 5 MG/ML AMP IM PRN ×2 (18:15)
[2017-06-14] MEDS ORDERED: HALOPERIDOL LACTATE 5 MG/ML AMP IV PUSH ONE (18:30)
[2017-06-14] MEDS ORDERED: LORazepam 2 MG/ML VIAL IV PUSH PRN (18:30)
[2017-06-14] MEDS: GABAPENTIN 300 MG CAP PO SCH (18:43)
[2017-06-14] MEDS: ENOXAPARIN SODIUM 30 MG/0.3 ML SYRINGE SQ SCH (18:44)
[2017-06-14] MEDS ORDERED: ENALAPRILAT 1.25 MG/ML VIAL IV PUSH PRN (18:45)
[2017-06-14] MEDS ORDERED: SENNOSIDES 8.6 MG TAB PO PRN (19:45)
[2017-06-14] MEDS ORDERED: LACTULOSE SYRUP 20 GM/30 ML CUP PO PRN (19:45)
[2017-06-14] MEDS ORDERED: MAGNESIUM HYDROXIDE SUSP 30 ML CUP PO PRN (19:45)
[2017-06-14] MEDS ORDERED: BISACODYL 10 MG SUPP RECTAL PRN (19:45)
[2017-06-14] MEDS ORDERED: CARBIDOPA PO SCH (21:00)
[2017-06-14] MEDS ORDERED: CARBIDOPA LEVODOPA PO SCH (21:00)
[2017-06-14] MEDS ORDERED: DOCUSATE SODIUM 50 MG/SENNA 8.6 MG TAB PO SCH (21:00)
[2017-06-14] MEDS ORDERED: SODIUM CHLORIDE 0.9% FLUSH 10 ML FLUSH IV FLUSH SCH (21:00)
[2017-06-14] MEDS ORDERED: LEVODOPA PO SCH (21:00)
[2017-06-14] MEDS: ATORVASTATIN 10 MG TAB PO SCH (21:44)
[2017-06-14] MEDS: DOCUSATE SODIUM 50 MG/SENNA 8.6 MG TAB PO SCH (21:44)
[2017-06-14] MEDS: SODIUM CHLORIDE 0.9% FLUSH 10 ML FLUSH IV FLUSH SCH (21:45)
[2017-06-14] MEDS: SODIUM CHLOR 0.9% 1000 ML INJ 1,000 ML IV SCH (21:45)
[2017-06-15] VITALS (8 sets, daily range): BP systolic 110–147; BP diastolic 53–65; PULSE 55–77; RESP 17–20; TEMP 97.6–99.4; O2SAT 96–98
[2017-06-15] MEDS: SODIUM CHLOR 0.9% 1000 ML INJ 1,000 ML IV SCH ×3 (05:00→19:41)
[2017-06-15 06:22] LABS: AUTOMATED NEUTROPHIL # 2.8 TH/MM3 (1.8-7.7); BASOPHIL % 0.8 % (0.0-2.0); EOSINOPHIL # 0.5 TH/MM3 (0-0.4); EOSINOPHIL % 9.3 % (0.0-4.0); HEMATOCRIT 38.3 % (39.0-51.0); HEMOGLOBIN 13.1 GM/DL (13.0-17.0); LYMPH % 22.9 % (9.0-44.0); LYMPHOCYTE # 1.2 TH/MM3 (1.0-4.8); MEAN CELL VOLUME 88.7 FL (80.0-100.0); MEAN CORPUSCULAR HEMOGLOBIN 30.4 PG (27.0-34.0); MEAN CORPUSCULAR HGB CONC 34.2 % (32.0-36.0); MEAN PLATELET VOLUME 6.9 FL (7.0-11.0); MONO % 13.4 % (0.0-8.0); MONOCYTE # 0.7 TH/MM3 (0-0.9); NEUT % 53.6 % (16.0-70.0); PLATELET COUNT 182 TH/MM3 (150-450); RED BLOOD COUNT 4.32 MIL/MM3 (4.50-5.90); RED CELL DISTRIBUTION WIDTH 15.7 % (11.6-17.2); WHITE BLOOD COUNT 5.2 TH/MM3 (4.0-11.0)
[2017-06-15 06:31] LABS: CALCIUM 8.5 MG/DL (8.5-10.1); CREATININE 0.92 MG/DL (0.60-1.30)
[2017-06-15] MEDS: ISOSORBIDE MONONITRATE 30 MG TAB PO SCH (08:40)
[2017-06-15] MEDS: GABAPENTIN 300 MG CAP PO SCH (08:40)
[2017-06-15] MEDS: DOCUSATE SODIUM 50 MG/SENNA 8.6 MG TAB PO SCH ×2 (08:41→23:13)
[2017-06-15] MEDS: SODIUM CHLORIDE 0.9% FLUSH 10 ML FLUSH IV FLUSH SCH ×2 (08:41→21:00)
[2017-06-15] MEDS ORDERED: ISOSORBIDE MONONITRATE 30 MG TAB PO SCH (09:00)
--- NOTE | 2017-06-15 09:11 | HHI.FPPN ---
Subjective Subjective Patient seen and examined. Case reviewed and discussed Please refer to resident H&P for further details regarding HPI, ROS, PMH, SurgHx , FH and SocHx In summary, patient is an 82yoM presenting with Influenza A diagnosed at an urgent care center on Sunday (2 days prior to admission) Patient had started to become more confused, and had stopped taking his medication. brought him in after she couldn't handle it any more. Patient is seen this am sitting up in bed sitter at the beside. He ate his whole breakfast, has a great appetite. Talkative about Jonnie Alan and all he has contributed to our world. [facility] Objective Objective Last Impressions Head CT 06/14/17 0000 Signed Impressions: Service Date/Time: May 16:42 - CONCLUSION: No acute intracranial findings. Wai Hernadnez MD Chest X-Ray 06/14/17 0000 Signed Impressions: Service Date/Time: May 15:31 - CONCLUSION: No significant interval change. Mild cardiac silhouette enlargement and bilateral lower lung atelectasis again seen. Wai Hernandez MD Laboratory Tests - Abnormals Test 06/14/17 15:09 06/14/17 16:21 06/14/17 18:50 06/15/17 05:29 Mean Platelet Volume 6.9 FL Monocytes (%) (Auto) 15.9 % Blood Urea Nitrogen 19 MG/DL 24 MG/DL Random Glucose 124 MG/DL Estimat Glomerular Filtration Rate 68 ML/MIN 79 ML/MIN Troponin I LESS THAN 0.02 NG/ML Chloride Level 111 MEQ/L Test 06/15/17 05:47 Red Blood Count 4.32 MIL/MM3 Hematocrit 38.3 % Mean Platelet Volume 6.9 FL Monocytes (%) (Auto) 13.4 % Eosinophils (%) (Auto) 9.3 % Eosinophils # (Auto) 0.5 TH/MM3 Vital Signs 06/14/17 06/14/17 06/14/17 06/14/17 14:51 15:45 16:21 18:43 Temp 98.1 Pulse 63 61 57 63 Resp 18 18 18 18 B/P (MAP) 160/74 (102) 167/74 (105) 191/91 (124) Pulse Ox 97 96 97 97 O2 Delivery Room Air Room Air Room Air 06/14/17 06/14/17 06/14/17 06/14/17 19:22 19:49 20:00 21:05 Temp 97.5 Pulse 88 59 Resp 16 16 B/P (MAP) 177/67 (103) 133/64 (87) Pulse Ox 99 98 97 O2 Delivery Room Air 06/14/17 06/15/17 06/15/17 23:15 03:01 07:24 Temp 98.7 98.0 97.8 Pulse 56 57 55 Resp 16 17 20 B/P (MAP) 148/66 (93) 139/65 (89) 147/65 (92) Pulse Ox 97 98 97 INTAKE & OUTPUT 06/16/17 07:00 Intake Total 1080 ml Balance 1080 ml Physical exam GENERAL: wdwn elderly male, talkative. NAD SKIN: Warm and dry. NO rashes, lesions. HEAD: Normocephalic. AT EYES: No scleral icterus. No injection or drainage. ENT: OP clear. MMM NECK: Supple, trachea midline. No JVD or lymphadenopathy. CARDIOVASCULAR: Regular rate and rhythm without audible murmurs, gallops, or rubs. RESPIRATORY: Breath sounds equal and clear bilaterally. No accessory muscle use. GASTROINTESTINAL: Abdomen soft, non-tender, nondistended. Normal active BS. No rebound, guarding. MUSCULOSKELETAL: No cyanosis, or edema. No calf tenderness. BACK: Nontender without obvious deformity. No CVA tenderness. NEURO: Awake and alert. normal speech. CN grossly intact. MAEW. Assessment Assessment 82yoM admitted with: Influenza A Afib CAD Parkinsons Disease HTN PLAN PLAN Tamiflu CXR Monitor VS Supplemental Oxygen Blood cultures UA, with culture if necessary PT Supportive care Patient seen and examined. Case reviewed and discussed Agree with plan of are as discussed with me and documented in the resident note. Deyanira Wills MD Jun 15, 2017 09:11
--- NOTE | 2017-06-15 10:12 | EKG ---
Date Performed: 06/14/2017 Time Performed: 15:12:05 PTAGE: 82 years EKG: Sinus rhythm WITH SINUS ARRHYTHMIA NONSPECIFIC INTRAVENTRICULAR CONDUCTION DELAY MINIMAL VOLTAGE CRITERIA FOR LVH , CONSIDER NORMAL VARIANT NONSPECIFIC T-WAVE ABNORMALITY POOR R WAVE PROGRESSION BORDERLINE ECG PREVIOUS TRACING : 07/14/2016 11.20 No change from previous tracing noted. DOCTOR: Eldon Boucher Interpretating Date/Time 06/15/2017 10:11:25
[2017-06-15] MEDS: OSELTAMIVIR PHOSPHATE 6 MG/ML 60 ML SUSP PO SCH ×2 (10:50→23:13)
[2017-06-15] MEDS: ENOXAPARIN SODIUM 30 MG/0.3 ML SYRINGE SQ SCH (17:00)
[2017-06-15] MEDS ORDERED: GABA300C5 PO (17:21)
--- NOTE | 2017-06-15 17:22 | HHI.DCPOC ---
Discharge Care Plan Goals to Promote Your Health * To prevent worsening of your condition and complications, please take your medications as prescribed. * To maintain your health at the optimal level, please follow up with your primary care doctor in 1 week. Directions to Meet Your Goals Take your medications as prescribed Follow your dietary instruction Follow activity as directed Keep your appointments as scheduled Take your immunizations and boosters as scheduled If your symptoms worsen call your PCP, if no PCP go to Urgent Care Center or Emergency Room Smoking is Dangerous to Your Health. Avoid second hand smoke Call the 24-hour hour crisis hotline for domestic abuse at Roberto Ward MD R1 Jun 15, 2017 17:22
[2017-06-15 17:37] LABS: BILIRUBIN, URINE NEG (NEG); BLOOD, URINE NEG (NEG); GLUCOSE,URINE NEG (NEG); KETONE, URINE NEG (NEG); MUCUS URINE MANY /lpf (OCC); NITRITE,URINE NEG (NEG); PH, URINE 5.5 (5.0-8.5); SQUAMOUS EPITHELIAL CELL URINE <1 /hpf (0-5); URINE COLOR YELLOW (YELLW/STRAW); URINE LEUKOCYTE ESTERASE NEG (NEG)
[2017-06-15] MEDS: ATORVASTATIN 10 MG TAB PO SCH (23:13)
[2017-06-16 04:05] VITALS: BP 163/76; PULSE 68; RESP 17; TEMP 98; O2SAT 96
[2017-06-16] MEDS: ISOSORBIDE MONONITRATE 30 MG TAB PO SCH (06:34)
[2017-06-16 07:01] LABS: HEMATOCRIT 37.3 % (39.0-51.0); HEMOGLOBIN 12.5 GM/DL (13.0-17.0); MEAN CELL VOLUME 88.8 FL (80.0-100.0); MEAN CORPUSCULAR HEMOGLOBIN 29.8 PG (27.0-34.0); MEAN CORPUSCULAR HGB CONC 33.6 % (32.0-36.0); MEAN PLATELET VOLUME 6.9 FL (7.0-11.0); PLATELET COUNT 189 TH/MM3 (150-450); RED CELL DISTRIBUTION WIDTH 15.8 % (11.6-17.2); WHITE BLOOD COUNT 6.4 TH/MM3 (4.0-11.0)
[2017-06-16 07:11] VITALS: BP 173/80; PULSE 66; RESP 18; TEMP 98; O2SAT 97
[2017-06-16 07:35] LABS: BICARBONATE 22.1 MEQ/L (21.0-32.0); CALCIUM 8.9 MG/DL (8.5-10.1); CREATININE 0.79 MG/DL (0.60-1.30)
[2017-06-16] MEDS: SODIUM CHLORIDE 0.9% FLUSH 10 ML FLUSH IV FLUSH SCH (09:00)
[2017-06-16] MEDS: RESP: ALBUTEROL 2.5 MG/IPRATROPIUM 0.5 MG NEB (SCH) NEB ×2 (09:11→11:57)
[2017-06-16] MEDS: OSELTAMIVIR PHOSPHATE 6 MG/ML 60 ML SUSP PO SCH (10:01)
[2017-06-16] MEDS: DOCUSATE SODIUM 50 MG/SENNA 8.6 MG TAB PO SCH (10:01)
--- NOTE | 2017-06-16 10:35 | HHI.FPPN ---
Subjective Remarks Patient is doing much better today. He has no acute complaints today. He denies fever or shortness of breath. He has no chest pain, nausea, vomiting, or abdominal pain. (EkoVeronica MD R2) Objective Vitals Vital Signs Date Time Temp Pulse Resp B/P (MAP) Pulse Ox O2 Delivery O2 Flow Rate FiO2 06/16/17 07:11 98.0 66 18 173/80 (111) 97 06/16/17 04:05 98.0 68 17 163/76 (105) 96 06/15/17 23:24 97.6 62 17 126/58 (80) 97 06/15/17 20:42 99.4 77 17 122/62 (82) 96 06/15/17 15:09 97.8 60 20 110/55 (73) 97 06/15/17 12:20 63 06/15/17 11:05 98.4 77 18 113/53 (73) 96 I/O 06/15/17 06/15/17 06/15/17 06/16/17 06/16/17 06/16/17 07:00 15:00 23:00 07:00 15:00 23:00 Intake Total 800 ml 1080 ml 1000 ml Balance 800 ml 1080 ml 1000 ml Intake Oral 80 ml IV Total 800 ml 1000 ml 1000 ml # Voids 1 (EkoVeronica MD R2) Result Diagram: 06/16/17 0548 06/16/17 0548 Imaging GENERAL: wdwn elderly male, NAD SKIN: Warm and dry. NO rashes, lesions. HEAD: Normocephalic. AT EYES: No scleral icterus. No injection or drainage. ENT: OP clear. MMM NECK: Supple, trachea midline. No JVD or lymphadenopathy. CARDIOVASCULAR: Regular rate and rhythm without audible murmurs, gallops, or rubs. RESPIRATORY: Breath sounds equal bilaterally, rare inspiratory wheeze in the middle lung stein. No accessory muscle use. GASTROINTESTINAL: Abdomen soft, non-tender, nondistended. Normal active BS. No rebound, guarding. MUSCULOSKELETAL: No cyanosis, or edema. No calf tenderness. BACK: Nontender without obvious deformity. No CVA tenderness. NEURO: Awake and alert. normal speech. CN grossly intact. (EkoVeronica MD R2) A/P Assessment and Plan 82YO male w/PMHx of Afib and recurrent nephrolithiasis p/w influenza dx at urgent care on Sunday with sxs since Sunday. We'll continue treatment with Tamiflu. Impression: -CXR w/bibasilar atelectasis -Head CT no acute findings -CBC wnl (15.9% monos) -CMP wnl (BUN 19 and random glucose 124) -Trop 0.02, BNP 30 -Ammonia 19 -UA negative for infection -Blood cx no growth 2 days -Repeat Influenza a/b pending PLAN: 1. Influenza A with likely mild dehydration -Contact precautions -Tamiflu 75mg daily -Tylenol 650mg PO pain/temp >100.4 -NS IVF @ 100ml/hr 2. CV -Continue home isosorbide nitrate 30mg PO daily -Continue home atorvastatin 10mg qhs -Continue home ASA 81mg chew daily 3. Parkinson's -Continue home Carbidopa-levodopa 36.25-145mg 1 cap BID 4. Delirium -Haldol 1mg IV PRN agitation -Ativan 0.25mg IV PRN agitation/anxiety -Sitter 1:1 -Restraints if needed 5. FEN/GI/PPx: Fluids: as above Electrolytes: none required at this time Nutrition: regular diet as tolerated GI: none indicated at this time PPx: Lovenox 30mg subcu q24h Bowel regimen Zofran 4mg IV PRN Continue home dose gabapentin for neuropathy at reduced dose of 300mg TID Discussed with Dr. Wills Discharge Planning Plan to discharge home today 06/16/17 (Veronica Mauricio MD R2) Problem List: (1) Influenza ICD Codes: J11.1 - Influenza due to unidentified influenza virus with other respiratory manifestations (2) Altered mental status ICD Codes: R41.82 - Altered mental status, unspecified Status: Acute (3) Parkinson disease ICD Codes: G20 - Parkinson's disease Status: Acute (4) Paroxysmal atrial fibrillation ICD Codes: I48.0 - Paroxysmal atrial fibrillation Status: Chronic (5) FEN/GI/PPx (Veronica Mauricio MD R2) Problem Qualifiers (1) Altered mental status: Qualified Codes: R41.82 - Altered mental status, unspecified Veronica Mauricio MD R2 Jun 16, 2017 10:35 Deyanira Wills MD Jun 18, 2017 09:10
[2017-06-16 11:33] VITALS: BP 138/66; PULSE 66; RESP 18; TEMP 98.6; O2SAT 98
--- NOTE | 2017-06-16 17:04 | HHI.DS ---
Discharge Summary Admission Date Jun 14, 2017 at 5:23 pm Discharge Date: Jun 16, 2017 Admitting Diagnosis altered mental status, influenza infection, dehydration (1) Influenza Diagnosis: Principal ICD Codes: J11.1 - Influenza due to unidentified influenza virus with other respiratory manifestations (2) Altered mental status Diagnosis: Principal ICD Codes: R41.82 - Altered mental status, unspecified Status: Acute (3) Parkinson disease Diagnosis: Secondary ICD Codes: G20 - Parkinson's disease Status: Acute (4) Paroxysmal atrial fibrillation Diagnosis: Secondary ICD Codes: I48.0 - Paroxysmal atrial fibrillation Status: Chronic Brief History Mr Nixon is an 82 YO male w/PMHx Afib and recurrent nephrolithiasis who presents with flu-like sxs since Sunday. His Sarah reports her came down with flu like symptoms starting with a cough on Sunday. By Sunday he had a runny nose, cough productive of sputum, fever, headache, and ear pain and went to urgent care and was dx with influenza A via nasal swab. He was prescribed Tamiflu and Doxycycline 100mg, but decided by Sunday that he would no longer take his flu medications. His reports that he had been refusing his normal medications since Sunday. He has had AMS since Sunday as reports he has not been himself and he seems confused. Pt has trouble walking and Dr Wolf, neurologist, thinks he has Parkinson's, but is not reported to be on medication for this yet; however, he has Carbidopa-levodopa on his med recs. Denies CP, current SOB, V/D, DVT pain, but has told his he was nauseous. CBC/BMP: 06/16/17 0548 06/16/17 0548 Significant Findings Laboratory Tests Test 06/14/17 15:09 06/14/17 16:21 06/14/17 18:50 06/15/17 05:29 Mean Platelet Volume 6.9 FL (7.0-11.0) Monocytes (%) (Auto) 15.9 % (0.0-8.0) Blood Urea Nitrogen 19 MG/DL (7-18) 24 MG/DL (7-18) Random Glucose 124 MG/DL (74-106) Estimat Glomerular Filtration Rate 68 ML/MIN (>89) 79 ML/MIN (>89) Troponin I LESS THAN 0.02 NG/ML Chloride Level 111 MEQ/L (98-107) Test 06/15/17 05:47 06/15/17 16:30 06/16/17 05:48 Red Blood Count 4.32 MIL/MM3 (4.50-5.90) 4.20 MIL/MM3 (4.50-5.90) Hematocrit 38.3 % (39.0-51.0) 37.3 % (39.0-51.0) Mean Platelet Volume 6.9 FL (7.0-11.0) 6.9 FL (7.0-11.0) Monocytes (%) (Auto) 13.4 % (0.0-8.0) Eosinophils (%) (Auto) 9.3 % (0.0-4.0) Eosinophils # (Auto) 0.5 TH/MM3 (0-0.4) Urine Protein 30 mg/dL (NEG-TRACE) Urine Mucus MANY /lpf (OCC) Hemoglobin 12.5 GM/DL (13.0-17.0) Blood Urea Nitrogen 20 MG/DL (7-18) Chloride Level 112 MEQ/L (98-107) Imaging Last [address] 06/14/17 0000 Signed Impressions: Service Date/Time: May 16:42 - CONCLUSION: No acute intracranial findings. Wai Hernandez MD Chest X-Ray 06/14/17 0000 Signed Impressions: Service Date/Time: May 15:31 - CONCLUSION: No significant interval change. Mild cardiac silhouette enlargement and bilateral lower lung atelectasis again seen. Wai Hernandez MD PE at Discharge 82YO male w/PMHx of Afib and recurrent nephrolithiasis p/w influenza dx at urgent care on Sunday with sxs. He was admitted on observation for treatment with Tamiflu and IV fluids. By the following day, he showed marked clinical improvement and was back to baseline. He no longer seemed confused and was well oriented, no fever, chills, or shortness of breath. He was discharged home in stable condition to complete a course of Tamiflu, and he is to follow-up with his PCP within a week. Pt Condition on Discharge: Stable Discharge Disposition: Discharge Home Discharge Instructions DIET: Follow Instructions for: As Tolerated, No Restrictions Activities you can perform: Regular-No Restrictions Follow up Referrals: PCP Follow-up - 1 Week New Medications: Gabapentin (Gabapentin) 300 Mg Cap 300 MG PO TID, #90 CAP 0 Refills Continued Medications: Aspirin (Aspirin) 81 Mg Chew 81 MG CHEW ONCE, #1 TAB 0 Refills Atorvastatin (Atorvastatin) 10 Mg Tab 10 MG PO HS for Cholesterol Management, #30 TAB 0 Refills Carbidopa-Levodopa ER 8 HR (Rytary ER 8 HR) 36.25-145 Mg Cap 1 CAP PO BID for Parkinson Disease Mgmt, #90 CAP 0 Refills Isosorbide Mononitrate ER (Isosorbide Mononitrate ER) 30 Mg Melissa 30 MG PO DAILY for Prevent Chest Pain, #30 TAB 0 Refills Methylprednisolone (Methylprednisolone) 8 Mg Tab 4 MG PO DAILY, TAB 0 Refills Oseltamivir (Tamiflu) 75 Mg Cap 75 MG PO DAILY for Mgmt Viral Infection, CAP 0 Refills Discontinued Medications: Doxycycline Hyclate (Doxycycline Hyclate) 100 Mg Cap 100 MG PO BID for Infection, CAP 0 Refills Gabapentin (Gabapentin) 600 Mg Tab 600 MG PO TID, #90 TAB 0 Refills Veronica Mauricio MD R2 Jun 16, 2017 5:04 pm
== END 2017-06-16 12:50 | disposition home or self-care (01) | DRG 194 ==
LOC: NEPE 14:50 → NEDA 17:23 → OBSVTOIN 19:13 → NEPHCDU 19:36
PROVIDERS: ADMIT Family Medicine; ATTEND Family Medicine
DX: J09.X2 Influenza due to identified novel influenza A virus with other respiratory manifestations (principal); J98.11 Atelectasis; G20 Parkinson's disease; I48.0 Paroxysmal atrial fibrillation; E86.0 Dehydration; G62.9 Polyneuropathy, unspecified; I10 Essential (primary) hypertension; F41.9 Anxiety disorder, unspecified; I25.10 Atherosclerotic heart disease of native coronary artery without angina pectoris; M19.90 Unspecified osteoarthritis, unspecified site; R26.2 Difficulty in walking, not elsewhere classified; Z79.82 Long term (current) use of aspirin; Z88.5 Allergy status to narcotic agent; Z85.46 Personal history of malignant neoplasm of prostate; Z87.442 Personal history of urinary calculi; Z91.19 Patient's noncompliance with other medical treatment and regimen
CPT/HCPCS: 70450; 71046; 80048; 80053; 81001; 82140; 83605; 83880; 84484; 85025; 85027; 87040; 87449; 93005; 94664; 96361; 96374; G8987-GP; G8988-GP; J1630; J1650; J1885; J7030